=== PATIENT | female | born 1985 | race Caucasian/White ===

== ENCOUNTER → 2021-12-08 15:03 | Outpatient (BNVA) | payer BC, SELFPAY | PROVIDERS: Visit Provider Nurse Practitioner | DX: G43.909 Migraine, unspecified, not intractable, without status migrainosus (principal) | CPT/HCPCS: 80053; 82607; 83735 ==

== ENCOUNTER 2022-03-16 12:16 | Emergency (ER) | payer BC, SELFPAY ==
[2022-03-16 12:43] VITALS: BP 130/83; PULSE 68; RESP 18; TEMP 37; O2SAT 100; BMI 21.7
[2022-03-16 12:49] VITALS: PULSE 66
--- NOTE | 2022-03-16 13:12 | CT_ITS ---
WS: [id number] CT HEAD TECHNIQUE: Noncontrast CT of the head obtained from the skullbase to the vertex. CLINICAL INFORMATION: right extremity numbness COMPARISON: None. DLP: 1068.[address] scans at [facility] use at least one of these dose optimization techniques: automated e xposure control; mA and/or kV adjustment per patient size (includes targeted exams where dose is matc hed to clinical indication); or iterative reconstruction. FINDINGS: No evidence of intracranial hemorrhage or mass effect. Ventricular system and basal cisterns are padilla nt. No extra-axial fluid collections. No evidence of mass or mass effect. Normal gan-white different iation. Paranasal sinuses and mastoid air cells are well aerated. .Normal visualized soft tissues. CT/CT head wo con* [id number] IMPRESSION: 1. No evidence of intracranial hemorrhage or mass effect. 2. No acute intracranial findings.
--- NOTE | 2022-03-16 13:13 | ED_ITS ---
HPI - Extremity Problem General: Chief complaint: Extremity Problem,Nontraumatic Stated complaint: Right arm pain and numbness Time Seen by Provider: 03/16/22 12:49 History of Present Illness: 36-year-old female comes to the ED with right arm numbness pain. Patient says today she woke up with some right arm numbness. Symptoms are in her hand and move up into her forearm. She also has some pain that radiates from her right elbow up into her upper arm. Patient states that she is having this kind of symptoms on and off for over a month but is noted it happens a lot at night when she sleeping or early in the morning when she wakes up. Denies any other neurological symptoms such as vision changes, weakness to extremities or face. Associated symptoms: Deny chest pain, fever(s) or rash Review of Systems Const: Denies: fever(s), chills or fatigue Eyes: Denies: change in vision or eye discomfort ENMT: Denies: throat pain, odynophagia, nasal discharge or nasal congestion Card: Denies: chest pain, palpitations, edema, swelling of feet/ankles, dyspnea on exertion or orthopnea Resp: Denies: dyspnea, productive cough or non-productive cough GI: Denies: abdominal pain, nausea, vomiting, diarrhea, constipation or hem atochezia : Denies: flank pain, dysuria or hematuria Musc: Reports: extremity pain (Right upper arm pain); Denies: neck pain, back pain or extremity swelling Skin/Breast: Denies: rash or new lesions Neuro: Reports: sensory changes (Right hand wrist and forearm); Denies: headache(s), numbness in extremities or weakness in extremities [facility] ED PFSH: Medical History Anxiety with depression Hypoglycemia Migraine Surgical History History of section 2004, 2006, 2010 History of tubal ligation Family History Mother Cancer Hypertension Stroke Grandfather Diabetes Father Diabetes Hypertension Other CAD (coronary artery disease) Social History Smoking and tobacco status: current every day smoker Second hand smoke exposure: No Smoking risk assessment/counseling performed?: Yes Alcohol intake: never Desire information about alcohol rehabilitation?: No Counseling given: No Desire information about substance/drug rehabilitation?: No Counseling given: No Adopted: No Caregiver/support person: Yes Lives independently: Yes Household members: spouse and children Housing: House Marital status: Number of children: 3 service: No Current occupational status: unemployed Current occupational exposures/hazards: No Pets and animals: Yes Pets & animals: dog(s) Current gender identity: Female Female Reproductive History: Date of last menstrual period: 03/02/22 Para: 3 Physical Exam Const: COMMON NORMALS: patient oriented x3 HENMT: COMMON NORMALS: normocephalic HEAD & SCALP: normocephalic MOUTH: Normal oral and palatal mucosa present THROAT: posterior oropharynx normal and uvula midline Eye: COMMON NORMALS: Equal, round and reactive pupils present and EOMs intact bilaterally GENERAL EYE: appearance normal, both eyes and all related structures PUPIL: Yes Equal, round and reactive pupils present Neck/C-Spine: COMMON NORMALS: supple GENERAL: Yes normal visual inspection Lymph: LYMPHATIC: no lymphadenopathy noted Resp: COMMON NORMALS: normal respiratory effort, No retractions, No use of accessory muscles and clear to auscultation bilaterally AUSCULTATION: clear to auscultation bilaterally Cardio: COMMON NORMALS: regular rate, regular rhythm, S1 normal heart sound present, S2 normal heart sound present, No gallops present (Cardio), No clicks present (Cardio), No murmurs present (Cardio) and Peripheral pulses 2+ through out RATE: regular rate RHYTHM: regular rhythm HEART SOUNDS: S1 normal heart sound present and S2 normal heart sound present PERIPHERAL PULSES: Peripheral pulses 2+ throughout GI: COMMON NORMALS: Normal to inspection, nondistended, normoactive bowel sounds present, Soft to palpation, non-tender and no masses PALPATION: Yes Soft to palpation : COMMON NORMALS: Yes no CVA tenderness BLADDER/KIDNEY EXAM: Yes no CVA tenderness Back/Pelvis: COMMON NORMALS: no CVA tenderness Extremity: GENERAL: Yes normal exam except as noted RIGHT UPPER EXTREMITY: Yes wrist Right wrist: Yes special tests Right wrist special tests: Phalen's test: Positive Neuro: COMMON NORMALS: patient oriented x3, CN's II-XII intact bilaterally, moves all extremities, no focal motor deficits, no sensory deficits noted and gait normal COORDINATION/BALANCE: [id number] test normal GAIT: Yes Normal gait present SENSORY EXAM: Yes extremities (intact) MOTOR EXAM: 5/5 motor strength present throughout COORDINATION: [id number] test normal Skin: COMMON NORMALS: no rashes or lesions noted GENERAL SKIN EXAM: no rashes or lesions noted and dry skin Course Vital Signs: Vital signs: Vital Signs Temperature 98.6 F 03/16/22 13:14 Pulse Rate 68 03/16/22 13:14 Respiratory Rate 18 03/16/22 13:14 Blood Pressure 130/83 03/16/22 13:14 Pulse Oximetry 100 03/16/22 13:14 MDM - Extremity (Nontraumatic) Medical Decision Making Patient is a 36-year-old female comes to the ED with right upper arm pain and right hand wrist and forearm numbness/tingling. Patient says she has had the symptoms before and they usually occur at night when she sleeping or in the morning. Vitals are stable patient appears nontoxic in no acute distress or pain. Neuro exam shows no deficits. She did have a positive Phalen's test on the right wrist. CT of head showed no acute findings. Given patient's clinical exam and history, her symptoms likely coming from carpal tunnel syndrome. She was told to follow-up with her PCP within the next week for reevaluation. Instructed to take [id number] ibuprofen to help with symptoms and apply cold pack on wrist area to help with symptoms as well. Return to ED precautions given. Patient understood and agreed with plan. Lab Data I reviewed the patient's lab results. Radiology Impressions Head CT 03/16/22 13:12 IMPRESSION: 1. No evidence of intracranial hemorrhage or mass effect. 2. No acute intracranial findings. Discharge Plan Discharge Patient Disposition: Home Clinical Impression: Carpal tunnel syndrome, right Condition: Stable Prescriptions: No Action No Known Home Medications Discharge Orders: Discharge ED (Routine); Ordered 03/16/22 Ordered By: Dimas Govea Discharge Diet: Regular Discharge Activity: Resume usual activity Patient Instructions: Carpal Tunnel Syndrome, Paresthesia (ED) Activity Restrictions/Additional Instructions: Follow-up with medical provider as directed. Return to the ER or your medical provider if condition worsens. Please read and understand discharge instructions. Thank you for choosing [facility] for your healthcare needs today. Phylicia jones realize this is an emergency room and that we are providing you with a medical screening exam and this may not be complete and all inclusive of all the testing and or work up that you may need to determine your ailment or severity of your illness. It is very important that you follow up as instructed or that you return to the Emergency Department should you have concerns or if your condition changes or worsens in any way. Coding Level of Care Code ED Refining Equipment Operator for Chg Fwd Exam Comprehensive
[2022-03-16 13:14] VITALS: BP 130/83; PULSE 68; RESP 18; TEMP 37; O2SAT 100
== END 2022-03-16 14:15 | disposition home or self-care (01) ==
PROVIDERS: Emergency Provider Physician Assistant
DX: G56.01 Carpal tunnel syndrome, right upper limb (principal); F17.210 Nicotine dependence, cigarettes, uncomplicated
CPT/HCPCS: 70450; 99284

== ENCOUNTER → 2024-03-20 14:27 | Outpatient (BNVA) | payer BC, SELFPAY | PROVIDERS: PCP Nurse Practitioner Family; Visit Provider Nurse Practitioner Family | DX: J02.8 Acute pharyngitis due to other specified organisms (principal); B96.89 Other specified bacterial agents as the cause of diseases classified elsewhere; W57.XXXA Bitten or stung by nonvenomous insect and other nonvenomous arthropods, initial encounter | CPT/HCPCS: 80053; 85025; 86618; 86666; 86757 ==